=== PATIENT | female | born 1970 | race Caucasian/White ===

== ENCOUNTER 2020-09-08 12:02 | Emergency (ER) | payer SELFPAY ==
[2020-09-08] VITALS (8 sets, daily range): BP systolic 123–149; BP diastolic 77–93; PULSE 63–82; RESP 16–18; TEMP 36.4–36.8; O2SAT 95–100; BMI 34.7
--- NOTE | 2020-09-08 12:15 | XRR_ITS ---
PROCEDURE INFORMATION: Exam: XR Chest, 1 View Exam date and time: 09/08/2020 12:17 PM Age: 50 years old Clinical indication: Chest pain; Type not specified TECHNIQUE: Imaging protocol: XR of the chest Views: 1 view. COMPARISON: [place] Chest 1 [place] [id number] 08/07/2018 4:25 PM FINDINGS: Lungs: Unremarkable. No consolidation. Pleural space: Unremarkable. No pleural effusion. No pneumothorax. Heart/Mediastinum: Unremarkable. No cardiomegaly. Bones/joints: Unremarkable. XR/XR chest 1V portable [id number] IMPRESSION: No acute findings.
--- NOTE | 2020-09-08 12:15 | ECG_ITS ---
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 Measurements Intervals [place] Rate: 60 P: 55 NV: 141 QRS: 30 QRSD: 94 T: 43 QT: 430 QTc: 431 Interpretive Statements SINUS RHYTHM WITH SINUS ARRHYTHMIA LOW QRS VOLTAGE IN PRECORDIAL LEADS [QRS DEFLECTION < 1.0 mV IN CHEST LEADS] Compared to ECG 08/07/2018 16:17:38 Low QRS voltage now present Electronically Signed On 09-08-2020 13:17:56 CDT by Anthony Concepcion M.D. [email or web address] [email or web address] Vision Systemsmount [email or web address].[email or web address]/NU/[id number] f
[2020-09-08 12:45] LABS: Basophils # 0.1 10^3/uL (0.0-0.1); Basophils % 0.6 %; Eosinophils # 0.1 10^3/uL (0.0-0.8); Eosinophils % 1.1 %; Hematocrit 47.6 % (37.0-47.0); Hemoglobin 15.6 g/dL (11.5-15.3); Lymphocytes # 2.4 10^3/uL (0.8-4.8); Lymphocytes % 27.3 %; Mean Corpuscular HGB Conc 32.8 g/dL (30.0-36.0); Mean Corpuscular Volume 91.5 fL (81-99); Mean Platelet Volume 11.8 fL (7.4-10.4); Monocytes # 0.4 10^3/uL (0.2-0.9); Monocytes % 4.7 %; Neutrophils # 5.81 10^3/uL (1.8-7.7); Neutrophils % 66.1 %; Nucleated Red Blood Cells % 0 %; Platelet Count 301 10^3/cmm (130-400); Red Cell Distribution Width 12.4 % (12.1-15.1); White Blood Count 8.8 10^3/uL (4.0-10.0)
--- NOTE | 2020-09-08 12:48 | ED_ITS ---
HPI - Chest Pain General: Chief Complaint: Chest Pain Stated Complaint: CHEST PAIN Time Seen by Provider: 09/08/20 12:10 History of Present Illness: HPI narrative: This patient is a 50-year-old female who comes in today with chest pain. She said about 2 weeks of just unusual fatigue and shortness of breath with exertion. In the last week she started having episodes of sharp chest pain that are associated with lightheadedness and radiation of pain to her right arm. She had one prior episode of chest pain that ended up being her stomach. She said it got better with a GI cocktail which came to the ER at that time. She is never had a cardiac work-up. She does have a history of thyroid problems. She notes that about 6 weeks ago she started a low-carb diet and has lost about 18 pounds. She said she has done that before and does not think it is related to the symptoms. She has a family history of heart disease in her father. No family history of blood clots and no personal history of blood clots. No personal history of diabetes. She does have high blood pressure. MD complaint: chest pain Onset (ago): week(s) (2) Timing of current episode: episodic Prior episodes: Yes Onset: during rest Pain location: substernal Pain radiation: right arm Severity: severe Quality: sharp Relieving factors: nothing Exacerbating factors: nothing Associated symptoms: Reports dyspnea and other (Lightheaded); Deny abdominal pain, fever(s), nausea or vomiting Treatment prior to arrival: none Review of Systems General: Reports: 10 or more systems reviewed and unremarkable except in HPI and below Const: Denies: fever(s), chills, fatigue or malaise Eyes: Denies: change in vision ENMT: Denies: odynophagia Card: Reports: dyspnea on exertion; Denies: chest pain or swelling of feet/ankles Resp: Reports: dyspnea; Denies: productive cough or non-productive cough GI: Denies: abdominal pain, nausea or vomiting : Denies: flank pain or difficulty voiding Musc: Denies: neck pain or back pain Skin/Breast: Denies: rash Neuro: Reports: dizziness; Denies: headache(s), numbness in extremities or weakness in extremities Isidro/Lymph: Denies: easy bruising or easy bleeding PFS ED PFSH: Social History Smoking and tobacco status: current every day smoker cigarettes Physical Exam Const: COMMON NORMALS: no acute distress, patient oriented x3, no limitations and alert GENERAL APPEARANCE: cooperative and comfortable HENMT: HEAD & SCALP: normal to inspection FACE & SINUS: normal facial exam Eye: GENERAL EYE: appearance normal, both eyes and all related structures Neck/C-Spine: COMMON NORMALS: supple, no meningeal signs and no JVD Chest: COMMONS NORMALS: normal inspection of the chest Resp: COMMON NORMALS: normal respiratory effort, No use of accessory muscles and clear to auscultation bilaterally AUSCULTATION: clear to auscultation bilaterally Cardio: COMMON NORMALS: no JVD, regular rate, regular rhythm and No murmurs present (Cardio) RATE: regular rate RHYTHM: regular rhythm GI: COMMON NORMALS: Normal to inspection, nondistended, normoactive bowel sounds present, Soft to palpation and non-tender INSPECTION: Yes normal to inspection AUSCULTATION: Yes normoactive bowel sounds PALPATION: Yes Soft to palpation Back/Pelvis: COMMON NORMALS: thoracic and lumbar spine normal to inspection Extremity: COMMON NORMALS: normal to inspection Neuro: COMMON NORMALS: patient oriented x3, moves all extremities, no focal motor deficits and no sensory deficits noted SENSORIUM/ORIENTATION: Yes alert MENINGEAL SIGNS: Yes no meningeal signs Psych: COMMON NORMALS: mental status grossly normal, cooperative and normal affect Skin: COMMON NORMALS: no rashes or lesions noted and turgor normal GENERAL SKIN EXAM: no rashes or lesions noted and turgor normal Course ED course: Patient with atypical chest pain. She does have some risk factors. Work-up in the ED was negative. She has a primary care doctor but lost her insurance when she moved to [place] and is trying to establish with [facility] Vital Signs: Vital signs: Vital Signs Temperature 97.6 F 09/08/20 14:30 Pulse Rate 65 09/08/20 16:15 Respiratory Rate 18 09/08/20 16:15 Blood Pressure 123/77 09/08/20 16:15 Pulse Oximetry 95 09/08/20 16:15 MDM - Chest Pain Lab Data: Labs: Lab Results 09/08/20 09/08/20 09/08/20 Range/Units 12:33 12:33 12:33 WBC 8.8 (4.0-10.0) 10^3/ uL RBC 5.20 (4.1-5.3) 10^6/u L Hgb 15.6 H (11.5-15.3) g/dL Hct 47.6 H (37.0-47.0) % MCV 91.5 (81-99) fL MCH 30.0 (28.0-34.0) pg MCHC 32.8 (30.0-36.0) g/dL RDW 12.4 (12.1-15.1) % Plt Count 301 (130-400) 10^3/c mm MPV 11.8 H (7.4-10.4) fL Neut % (Auto) 66.1 % Lymph % (Auto) 27.3 % [place] % (Auto) 4.7 % Eos % (Auto) 1.1 % Baso % (Auto) 0.6 % Neut # (Auto) 5.81 (1.8-7.7) 10^3/u L Lymph # (Auto) 2.4 (0.8-4.8) 10^3/u L [place] # (Auto) 0.4 (0.2-0.9) 10^3/u L Eos # (Auto) 0.1 (0.0-0.8) 10^3/u L Baso # (Auto) 0.1 (0.0-0.1) 10^3/u L Nucleated RBC % (a uto) 0 % Nucleated RBCs # 0.0 /100WBC Sodium 141 (136-145) mmol/L Potassium 3.8 (3.5-5.1) mmol/L Chloride 102 (98-107) mmol/L Carbon Dioxide 27 (22-29) mmol/L Anion Gap 15.8 (5-19) BUN 8 (6-20) mg/dL Creatinine 0.9 (0.5-0.9) mg/dL GFR Calculation 66.5 L (90-130) mL/min Glucose 94 (65-115) mg/dL Calculated Osmolal ity 290 (285-295) mOsm/k g Calcium 9.5 (8.5-10.5) mg/dL Total Bilirubin 0.3 (0.15-1.2) mg/dL AST 18 (0-32) U/L ALT 19 (0-33) U/L Alkaline Phosphata se 66 (35-105) IU/L Troponin T Baselin e 6 (0-10) ng/L Troponin T 120 Min [place] (0-10) ng/L Delta Troponin T (0-10) ABS# Total Protein 7.4 (6.6-8.7) g/dL Albumin 4.3 (3.5-5.2) g/dL Globulin 3.1 (1.3-4.6) g/dL Lipase 27 (13-60) U/L HCG, Qual (Negative) Urine Color (Yellow) Urine Appearance (CLEAR) Urine pH (5-7) Ur Specific Gravit y (1.005-1.030) Urine Protein (Negative) Urine Glucose (UA) (Normal) Urine Ketones (Negative) Urine Blood (Negative) Urine Nitrate (Negative) Urine Bilirubin (Negative) Urine Urobilinogen (Negative) mg/dL Ur Leukocyte [place] ase (Negative) 09/08/20 09/08/20 09/08/20 Range/Units 13:41 13:41 14:28 WBC (4.0-10.0) 10^3/ uL RBC (4.1-5.3) 10^6/u L Hgb (11.5-15.3) g/dL Hct (37.0-47.0) % MCV (81-99) fL MCH (28.0-34.0) pg MCHC (30.0-36.0) g/dL RDW (12.1-15.1) % Plt Count (130-400) 10^3/c mm MPV (7.4-10.4) fL Neut % (Auto) % Lymph % (Auto) % [place] % (Auto) % Eos % (Auto) % Baso % (Auto) % Neut # (Auto) (1.8-7.7) 10^3/u L Lymph # (Auto) (0.8-4.8) 10^3/u L [place] # (Auto) (0.2-0.9) 10^3/u L Eos # (Auto) (0.0-0.8) 10^3/u L Baso # (Auto) (0.0-0.1) 10^3/u L Nucleated RBC % (a uto) % Nucleated RBCs # /100WBC Sodium (136-145) mmol/L Potassium (3.5-5.1) mmol/L Chloride (98-107) mmol/L Carbon Dioxide (22-29) mmol/L Anion Gap (5-19) BUN (6-20) mg/dL Creatinine (0.5-0.9) mg/dL GFR Calculation (90-130) mL/min Glucose (65-115) mg/dL Calculated Osmolal ity (285-295) mOsm/k g Calcium (8.5-10.5) mg/dL Total Bilirubin (0.15-1.2) mg/dL AST (0-32) U/L ALT (0-33) U/L Alkaline Phosphata se (35-105) IU/L Troponin T Baselin e (0-10) ng/L Troponin T 120 Min [place] 6.00 (0-10) ng/L Delta Troponin T 0 (0-10) ABS# Total Protein (6.6-8.7) g/dL Albumin (3.5-5.2) g/dL Globulin (1.3-4.6) g/dL Lipase (13-60) U/L HCG, Qual Negative (Negative) Urine Color Yellow (Yellow) Urine Appearance Clear (CLEAR) Urine pH 7.0 (5-7) Ur Specific Gravit y 1.005 (1.005-1.030) Urine Protein Neg (Negative) Urine Glucose (UA) Norm (Normal) Urine Ketones Negative (Negative) Urine Blood Neg (Negative) Urine Nitrate Negative (Negative) Urine Bilirubin Neg (Negative) Urine Urobilinogen Norm (Negative) mg/dL Ur Leukocyte [place] ase Negative (Negative) Discharge Plan Discharge Patient Disposition: Home Clinical Impression: Chest pain Qualifiers: Chest pain type: unspecified Qualified Code(s): R07.9 - Chest pain, unspecified Condition: Stable Discharge Orders: Discharge Order (Routine); Ordered 09/08/20 Ordered By: Diana Garcia Referrals: Anthony Concepcion M.D [Physician] - 2 weeks Shayan Hennessy MD [Primary Care Provider] - Discharge Diet: Advance as tolerated Discharge Activity: Resume usual activity Patient Instructions: Chest Pain (ED) Activity Restrictions/Additional Instructions: Continue to establish primary care at [facility]. Return to the ER if new or worse symptoms occur. We have also given a referral to cardiology for further evaluation of your chest pain. 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
[2020-09-08] MEDS: sodium chloride 0.9% 1,000 ML 999 ML IV (13:00)
[2020-09-08 13:24] LABS: Alanine Aminotransferase 19 U/L (0-33); Albumin Level 4.3 g/dL (3.5-5.2); Alkaline Phosphatase 66 IU/L (35-105); Anion Gap 15.8 (5-19); Aspartate Amino Transferase 18 U/L (0-32); Blood Urea Nitrogen 8 mg/dL (6-20); Calcium 9.5 mg/dL (8.5-10.5); Carbon Dioxide 27 mmol/L (22-29); Chloride 102 mmol/L (98-107); Globulin 3.1 g/dL (1.3-4.6); Glomerular Filtration Rate 66.5 mL/min (90-130); Glucose 94 mg/dL (65-115); Lipase 27 U/L (13-60); Osmolality Calculated 290 mOsm/kg (285-295); Potassium 3.8 mmol/L (3.5-5.1); Sodium 141 mmol/L (136-145); Total Bilirubin 0.3 mg/dL (0.15-1.2); Total Protein 7.4 g/dL (6.6-8.7); Troponin(5th) Baseline 6 ng/L (0-10)
--- NOTE | 2020-09-08 14:15 | ECG_ITS ---
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 Measurements Intervals [place] Rate: 65 P: 52 AL: 137 QRS: 42 QRSD: 89 T: 43 QT: 427 QTc: 447 Interpretive Statements SINUS RHYTHM Compared to ECG 09/08/2020 12:27:17 Sinus arrhythmia no longer present Electronically Signed On 09-10-2020 20:58:35 CDT by Anthony Concepcion M.D. [email or web address] county medical [email or web address], [email or web address]/[id number] f
[2020-09-08 14:18] LABS: Add Urine Microscopic? NO
[2020-09-08 14:24] LABS: Bilirubin Urine Neg (Negative); Blood Urine Neg (Negative); Glucose Urine UA Norm (Normal); Ketones Urine Negative (Negative); Nitrate Urine Negative (Negative); Protein Urine Neg (Negative); Specific Gravity, Urine 1.005 (1.005-1.030); Urine Appearance Clear (CLEAR); Urine Color Yellow (Yellow)
[2020-09-08 14:25] LABS: Leukocyte Esterase Urine Negative (Negative); Urobilinogen Urine Norm (Negative)
[2020-09-08 14:32] LABS: HCG Qualitative Urine. Negative (Negative)
[2020-09-08 15:35] LABS: Troponin 5 2HR Delta 0 ABS# (0-10)
== END 2020-09-08 16:19 | disposition home or self-care (01) ==
PROVIDERS: Emergency Provider Emergency Medicine; Family Provider Family Medicine; PCP Family Medicine
DX: R07.9 Chest pain, unspecified (principal); F17.210 Nicotine dependence, cigarettes, uncomplicated
CPT/HCPCS: 12345; 36415; 71045; 80053; 81003; 81025; 83690; 84484; 85025; 93005; 96360; 99284; J7030

== ENCOUNTER → 2020-09-25 09:30 | Outpatient (BNVA) | payer SELFPAY | PROVIDERS: Family Provider Family Medicine; PCP Family Medicine; Visit Provider Obstetrics & Gynecology | DX: Z12.4 Encounter for screening for malignant neoplasm of cervix (principal) | CPT/HCPCS: 88175 ==

== ENCOUNTER → 2020-10-06 14:43 | Outpatient (BNVA) | payer OTHER, SELFPAY | PROVIDERS: Family Provider Family Medicine; PCP Family Medicine; Visit Provider Nurse Practitioner Family | DX: Z20.828 Contact with and (suspected) exposure to other viral communicable diseases (principal) | CPT/HCPCS: 87635 ==

== ENCOUNTER → 2020-11-05 14:55 | Outpatient (BNVA) | payer SELFPAY | PROVIDERS: Family Provider Family Medicine; PCP Family Medicine; Visit Provider Obstetrics & Gynecology | DX: R87.610 Atypical squamous cells of undetermined significance on cytologic smear of cervix (ASC-US) (principal); R87.810 Cervical high risk human papillomavirus (HPV) DNA test positive | CPT/HCPCS: 88305 ==

== ENCOUNTER → 2020-11-29 14:01 | Outpatient (BNVA) | payer OTHER, SELFPAY | PROVIDERS: Family Provider Family Medicine; PCP Family Medicine; Visit Provider Nurse Practitioner | DX: Z20.828 Contact with and (suspected) exposure to other viral communicable diseases (principal); U07.1 COVID-19 | CPT/HCPCS: 87635 ==

== ENCOUNTER → 2021-01-21 11:09 | Outpatient (BNVA) | payer SELFPAY | PROVIDERS: Family Provider Family Medicine; PCP Family Medicine; Visit Provider Family Medicine | DX: E03.9 Hypothyroidism, unspecified (principal); Z68.34 Body mass index [BMI] 34.0-34.9, adult; F17.210 Nicotine dependence, cigarettes, uncomplicated | CPT/HCPCS: 80053; 84443; 85025 ==

== ENCOUNTER → 2021-12-03 12:02 | Outpatient (BNVA) | payer OTHER, SELFPAY | PROVIDERS: Family Provider Family Medicine; PCP Family Medicine; Visit Provider Nurse Practitioner Family | DX: Z20.822 Contact with and (suspected) exposure to COVID-19 (principal) | CPT/HCPCS: 87635 ==

== ENCOUNTER → 2022-03-24 11:48 | Outpatient (BNVA) | payer SELFPAY | PROVIDERS: Family Provider Family Medicine; PCP Family Medicine; Visit Provider Family Medicine | DX: E03.9 Hypothyroidism, unspecified (principal); F41.1 Generalized anxiety disorder; Z76.89 Persons encountering health services in other specified circumstances; M54.16 Radiculopathy, lumbar region | CPT/HCPCS: 80053; 80061; 84439; 84443; 85025 ==

== ENCOUNTER 2022-03-29 11:31 | Outpatient (CLI) | payer MEDICAID, SELFPAY ==
--- NOTE | 2022-03-29 11:58 | XRR_ITS ---
PROCEDURE INFORMATION: Exam: XR Lumbosacral Spine Exam date and time: 03/29/2022 12:04 PM Age: 51 years old Clinical indication: Low back pain; Additional info: Low back pain with radiculopathy TECHNIQUE: Imaging protocol: XR of the lumbosacral spine. Views: 2 or 3 views. COMPARISON: CT abdomen pelvis w con* [id number] 08/07/2018 6:29 PM FINDINGS: Bones/joints: Mild multilevel productive endplate changes throughout the spine. Soft tissues: Unremarkable. XR/XR lumbar spine 2-3V* [id number] IMPRESSION: Mild multilevel productive endplate changes throughout the spine.
== END 2022-03-29 11:32 | disposition home or self-care (01) ==
PROVIDERS: PCP Family Medicine; Visit Provider Family Medicine
DX: M54.16 Radiculopathy, lumbar region (principal); M54.50 Low back pain, unspecified
CPT/HCPCS: 72100

== ENCOUNTER → 2022-04-05 15:30 | Outpatient (BNVA) | payer MEDICAID, SELFPAY | PROVIDERS: PCP Family Medicine; Visit Provider Obstetrics & Gynecology | DX: Z12.4 Encounter for screening for malignant neoplasm of cervix (principal) | CPT/HCPCS: 87624 ==

== ENCOUNTER 2022-08-10 10:45 | Outpatient (CLI) | payer MEDICAID, SELFPAY ==
--- NOTE | 2022-08-10 10:54 | MM_ITS ---
WS: [id number] BILATERAL SCREENING DIGITAL TOMOSYNTHESIS MAMMOGRAM WITH CAD HISTORY: Screening exam. COMPARISON: 01/05/2006 Bilateral CC and MLO views with tomosynthesis and synthetic mammography submitted. Computer aided det ection analyzed. Breast composition: The breasts are almost entirely fatty. No suspicious masses, microcalcifications or architectural distortion. Benign scattered calcifications within each breast. MM/[place] [id number] IMPRESSION: BI-RADS: 2-Benign FOLLOW UP: 1 Year Follow-up
== END 2022-08-10 10:46 | disposition home or self-care (01) ==
LOC: RAD 10:51
PROVIDERS: PCP Family Medicine; Visit Provider Obstetrics & Gynecology
DX: Z12.31 Encounter for screening mammogram for malignant neoplasm of breast (principal)
CPT/HCPCS: 77063; 77067

== ENCOUNTER 2022-09-27 06:00 | Outpatient (CLI) | payer MEDICAID, SELFPAY | END 2022-09-27 06:01 | LOC: SPT 10-25 07:21 | PROVIDERS: PCP Family Medicine; Visit Provider Specialist | DX: Z46.89 Encounter for fitting and adjustment of other specified devices (principal); M25.562 Pain in left knee | CPT/HCPCS: L1812 ==

== ENCOUNTER 2022-10-07 18:36 | Emergency (ER) | payer MEDICAID, SELFPAY ==
[2022-10-07 18:58] VITALS: BP 126/91; PULSE 110; RESP 22; TEMP 36.9; O2SAT 96; BMI 33.6
--- NOTE | 2022-10-07 21:23 | XRR_ITS ---
PROCEDURE INFORMATION: Exam: XR Right Knee Exam date and time: 10/07/2022 9:45 PM Age: 52 years old Clinical indication: Pain; Knee; Right; Additional info: Trauma TECHNIQUE: Imaging protocol: Radiologic exam of the Right knee. Views: 3 views. COMPARISON: No relevant prior studies available. FINDINGS: Bones/joints: Mild medial compartment osteoarthritis. Soft tissues: Normal. XR/XR knee RT 3V* [id number] IMPRESSION: 1. Negative fracture or dislocation. 2. Mild medial compartment osteoarthritis.
--- NOTE | 2022-10-07 21:23 | XRR_ITS ---
PROCEDURE INFORMATION: Exam: XR Left Knee Exam date and time: 10/07/2022 9:39 PM Age: 52 years old Clinical indication: Pain; Knee; Left; Additional info: Trauma TECHNIQUE: Imaging protocol: Radiologic exam of the Left knee. Views: 3 views. COMPARISON: No relevant prior studies available. FINDINGS: Bones/joints: Normal. Soft tissues: Normal. XR/XR knee LT 3V* [id number] IMPRESSION: No acute findings.
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
--- NOTE | 2022-10-07 21:24 | XRR_ITS ---
PROCEDURE INFORMATION: Exam: XR Left Tibia and Fibula Exam date and time: 10/07/2022 9:56 PM Age: 52 years old Clinical indication: Pain; Lower leg; Right; Additional info: Trauma TECHNIQUE: Imaging protocol: Radiologic exam of the Left tibia and fibula. Views: 2 views. COMPARISON: CR (LOW EXM, ) 10/07/2022 9:39 PM FINDINGS: Bones/joints: Small calcified heel spur. Negative for fracture or dislocation. Soft tissues: Normal. XR/XR tibia fibula LT 2V [id number] IMPRESSION: No acute findings.
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
[2022-10-07] MEDS: HYDROcodone-acetaminophen 7.5-325 mg Tablet 1 TAB PO (23:15)
[2022-10-07 23:40] VITALS: BP 123/78; PULSE 100; RESP 18; TEMP 36.9; O2SAT 96
--- NOTE | 2022-10-10 07:53 | PC.SOCIAL ---
Addendum entered by Rose Marie Ng 11/16/22 13:42: Patient had a follow up appointment scheduled with ortho - patient did attend appointment. Original Note: Ortho Referral Consult received for ortho referral. Referral [facility] to [facility] Orthopedics/Podiatry. Clinic will contact patient with appt. date/time.
== END 2022-10-07 23:30 | disposition home or self-care (01) ==
PROVIDERS: Emergency Provider Emergency Medicine; PCP Family Medicine
DX: S83.92XA Sprain of unspecified site of left knee, initial encounter (principal); V89.2XXA Person injured in unspecified motor-vehicle accident, traffic, initial encounter; F17.210 Nicotine dependence, cigarettes, uncomplicated
CPT/HCPCS: 73562; 73590; 99283; E0114

== ENCOUNTER 2022-10-27 16:22 | Outpatient (CLI) | payer MEDICAID, SELFPAY ==
--- NOTE | 2022-10-27 16:45 | MR_ITS ---
WS: [id number] MRI LEFT KNEE HISTORY: Recent trauma, continued LEFT knee pain COMPARISON: Radiograph 10/07/2022 Anterior cruciate ligament: Intact with a small amount of fluid within the ligament distally. Posterior cruciate ligament: Complete tear involving the PCL in the mid body. There is also discontin uity involving the ligament of Wrisberg consistent with a tear. Fluid surrounds the ligament of Humph kinsey but it does appear to be intact. Medial collateral ligament: Intact. Posterior lateral corner structures: Intact. Medial menisci: Blunting free edge posterior horn with adjacent cartilage injury. Lateral meniscus: Intact. Normal signal, size and shape. Extensor mechanism: Distal quadriceps tendon and patellar tendons are intact. Fluid and soft tissue: Moderate-sized joint effusion. Mild soft tissue edema surrounds the femoral co ndyles and extends into the intercondylar notch. No Ward's cyst. Osseous and articular structures: Patellofemoral compartment: Normal position of patella. Mild chondromalacia at the patellar eminence. Medial compartment: Mild narrowing of the medial compartment. Moderate chondromalacia involving the w eightbearing portion of the femoral condyle and tibial plateau. Cartilage injury is at the site of th e blunted posterior horn medial meniscus. Linear signal extends obliquely through the femoral cartila ge and is suspicious for an area of delamination towards the intercondylar notch. Lateral compartment: Negative. MR/MR knee LT wo con* [id number] IMPRESSION: 1. Complete acute tear posterior cruciate ligament. 2. Also suspect tear involving the ligament of Wrisberg. 3. Blunting free edge posterior horn medial meniscus with adjacent cartilage i njury. Focal area of delamination suspected involving the femoral cartilage tow ards the intercondylar notch. 4. Moderate joint effusion.
== END 2022-10-27 16:23 | disposition home or self-care (01) ==
LOC: RAD 16:23
PROVIDERS: PCP Family Medicine; Visit Provider Specialist
DX: M25.462 Effusion, left knee (principal); S83.522A Sprain of posterior cruciate ligament of left knee, initial encounter; X58.XXXA Exposure to other specified factors, initial encounter
CPT/HCPCS: 73721

== ENCOUNTER → 2022-11-29 14:28 | Outpatient (BNVA) | payer MEDICAID, SELFPAY | PROVIDERS: PCP Family Medicine; Visit Provider Family Medicine | DX: E03.9 Hypothyroidism, unspecified (principal); F41.1 Generalized anxiety disorder | CPT/HCPCS: 80053; 84439; 84443 ==

== ENCOUNTER 2023-01-06 07:26 | Day surgery (SDC) | payer OTHER, MEDICAID, SELFPAY ==
[2023-01-05 13:40] VITALS: BMI 35.2
[2023-01-06] VITALS (7 sets, daily range): BP systolic 98–124; BP diastolic 53–81; PULSE 50–76; RESP 11–18; TEMP 36.2–36.6; O2SAT 95–98
[2023-01-06] MEDS: ketorolac 30 mg/mL INJ IVP (07:57)
[2023-01-06] MEDS: acetaminophen 1,000 MG/100 ML PIGGYBACK 400 MG IV (07:57)
[2023-01-06] MEDS: sodium chloride 0.9% 1,000 ML 30 ML IV (07:57)
[2023-01-06] MEDS: scopolamine 1.5 Patch 1 PATCH TRANSDERMA (07:58)
[2023-01-06 08:05] LABS: OR HCG Qualitative Urine Negative (Negative)
--- NOTE | 2023-01-06 08:05 | W.PM.OPSFHP ---
Same Day Surgery H&P Indication for Procedure/HPI DATE OF PROCEDURE: January 06, 2023 CHIEF COMPLAINT/INDICATIONFOR SURGICAL PROCEDURE: Left knee injury, PCL tear and medial meniscus tear and medial chondromalacia PREOP DIAGNOSIS: Left knee medial meniscus tear, chondromalacia PLANNED PROCEDURE: Operation Date: 01/06/23 09:55 Proposed Procedures p left knee diagnostic and surgical arthroscopy 92698, left knee partial medial meniscectomy repair 23509 S83.242A,S83.529A(Left) - Tom Ford DO s Meniscectomy(Left) - Tom Ford DO Patient sustained an injury to her left knee. She was worked up by my partner and had an MRI performed. Was found to have an acute PCL tear as well as possible medial meniscus tear and cartilage injury at the medial compartment. We originally plan for surgery and then she did pause to see how she could heal in time. She is continue to have medial pain as well as stiffness and clicking and catching. At this point time she elected to proceed with surgical intervention of the left knee diagnostic and surgical arthroscopy with partial medial meniscectomy versus repair and possible chondroplasty. We did detail and long discussion about an isolated PCL injury and ultimately given her age and this isolated injury to this ligament would recommend nonoperative treatment and no reconstruction. At this point time through shared decision making she is agreeable with this. Patient agrees to proceed with surgery today. Medications/Allergies* Home Medications Medication Instructions Recorded Confirmed Type levothyroxine 100 mcg tablet 100 mcg PO DAILY 01/05/23 01/06/23 History Allergies/Adverse Reactions Allergy/AdvReac Type Severity Reaction Status Date / Time metronidazole [From Flagyl] Allergy ALGY-Hives Verified 01/06/23 07:52 Current Medications: Generic Name Dose Route Start Last Admin Trade Name Freq PRN Reason Stop Dose Admin Sodium Chloride 1,000 mls @ 30 mls/hr 01/06/23 07:45 01/06/23 07:57 Sodium Chloride 0.9% IV 01/07/23 07:44 30 mls/hr .Q24H LATASHA Administration Pertinent History/Comorbid Conditions* Medical History (Updated 11/10/22 @ 06:04 by Tom Ford DO) Acute medial meniscus tear of left knee History of abnormal cervical Pap smear Hypothyroid Tear of posterior cruciate ligament of knee Well woman exam with routine gynecological exam Surgical History (Updated 04/05/22 @ 16:06 by Bulmaro Rojas MD) H/O section H/O tubal ligation H/O vaginal surgery x3 vaginal wall excision CO2 laser Family History (Updated 09/25/20 @ 08:48 by Lexie Campos RN) Diabetes Brother Mother Heart disease Brother Hypertension Mother Denies family history of Colon cancer Ovarian cancer Clotting disorder Hyperlipidemia Breast cancer Anesthesia complication Bleeding disorder Uterine cancer Thyroid condition Stroke Social History Smoking and tobacco status: current every day smoker cigarettes Alcohol intake: current Alcohol intake frequency: holidays/special occasions only Alcohol type: beer Pertinent Exam Findings alert, operative site marked and procedure specific exam findings Examination patient's left knee demonstrates mild joint effusion noted.? Patient has significant tenderness to palpation over the posterior medial aspect of the knee as well as a small Ward's cyst and slight tenderness to palpation posteriorly.? On examination of varus valgus stress is negative.? She does have a mild positive posterior drawer test.? Negative anterior drawer negative Gabi's.? She has no lateral joint line tenderness.? Positive Deepa's medially.? Patient has decreased range of motion roughly 0 degree extension?115 degrees of flexion calf soft and nontender Pertinent Data Left knee MRI 10/27/2022 IMPRESSION: ? 1.? Complete acute tear posterior cruciate ligament. 2.? Also suspect tear involving the ligament of Wrisberg. 3.? Blunting free edge posterior horn medial meniscus with adjacent cartilage injury. Focal area of delamination suspected involving the femoral cartilage towards the intercondylar notch. 4.? Moderate joint effusion. ? Recommendations Surgery/Procedure today Other Plans: Plan for OR today for left knee diagnostic and surgical arthroscopy with partial medial meniscectomy versus repair, possible chondroplasty. She understands risk benefits complication alternatives surgical and nonsurgical treatment options. Understanding risk of surgery she elects to proceed with surgical intervention. All questions answered. We will proceed with surgery today. Coding Level of Care Code Acute Code for Chg Fwd Time Spent (min) 20
--- NOTE | 2023-01-06 08:15 | ANES.PREANE2 ---
Pre-Anesthetic Assessment Height/Weight: Height 1.7 m Weight 102.058 kg Temp Pulse Resp BP Pulse Ox O2 Del Method 97.9 F 76 18 124/81 97 01/06/23 07:31 01/06/23 07:31 01/06/23 07:31 01/06/23 07:31 01/06/23 07:31 01/06/23 07:40 Preop Diagnosis: Left knee medial meniscus tear, chondromalacia Operation Date: 01/06/23 09:55 Proposed Procedures p left knee diagnostic and surgical arthroscopy 14744, left knee partial medial meniscectomy repair 17748 S83.242A,S83.529A(Left) - Tom Ford DO s Meniscectomy(Left) - Tom Ford DO Familial anesthetic complications: Slow to wake up Was Beta Kristen taken within 24 hours: Yes Was Clonidine taken within 24 hours: N/A Last intake: Intake Last Liquid Date 01/05/23 Last Liquid Time 18:30 Last Solid Date 01/05/23 Last Solid Time 18:30 Social Tobacco and No alcohol Exam alert, oriented x 3, clear to auscultation bilaterally and regular rate & rhythm Airway Mallampati: Class III Dentition: full CV/HEM Hypertension Metabolic Thyroid Disease Anesthetic Plan ASA status: 2 Anesthesia: General Risk of > 500 ml blood loss (7ml/kg in children): No Medications/Allergies Home Medications Medication Instructions Recorded Confirmed Last Taken Type Hinged knee brace #1 ea 10/12/22 11/25/22 Unknown Rx atenolol 25 mg tablet 25 mg PO DAILY #30 tabs 10/25/22 01/06/23 01/05/23 Rx tramadol 50 mg tablet 50 mg PO BID PRN pain 30 days #60 12/26/22 01/06/23 01/05/23 Rx tabs levothyroxine 100 mcg tablet 100 mcg PO DAILY 01/05/23 01/06/23 01/06/23 History Allergies Allergy/AdvReac Type Severity Reaction Status Date / Time metronidazole [From Flagyl] Allergy ALGY-Hives Verified 01/06/23 07:52 Current Medications Generic Name Dose Route Start Last Admin Trade Name Freq PRN Reason Stop Dose Admin Sodium Chloride 1,000 mls @ 30 mls/hr 01/06/23 07:45 02/10/23 07:57 Sodium Chloride 0.9% IV 01/07/23 07:44 30 mls/hr .Q24H LATASHA Administration PFSH Anesthesia Medical History (Updated 11/10/22 @ 06:04 by Tom Ford DO) Acute medial meniscus tear of left knee History of abnormal cervical Pap smear Hypothyroid Tear of posterior cruciate ligament of knee Well woman exam with routine gynecological exam Surgical History H/O section H/O tubal ligation H/O vaginal surgery x3 vaginal wall excision CO2 laser Family History Brother Diabetes Heart disease Mother Diabetes Hypertension Denies family history of Colon cancer Ovarian cancer Clotting disorder Hyperlipidemia Breast cancer Anesthesia complication Bleeding disorder Uterine cancer Thyroid condition Stroke Social History Smoking and tobacco status: current every day smoker cigarettes Alcohol intake: current Alcohol intake frequency: holidays/special occasions only Alcohol type: beer Female Reproductive History Date of last menstrual period: 12/23/22 Data Anesthesia Cardiac Studies: No Data to Display
[2023-01-06] MEDS: ceFAZolin 2,000 MG in sodium chloride 0.9% (plus) 50 ML 100 MG IV (08:51)
[2023-01-06] MEDS: lidocaine-epi 2% 20 mL INJ 40 ML INJECTION (09:25)
[2023-01-06] MEDS: HYDROcodone-acetaminophen 5-325 mg Tablet 1 TAB PO (10:28)
--- NOTE | 2023-01-06 10:45 | PM.OP2 ---
Brief Operative Note Date of procedure: 01/06/23 Pre-op diagnosis: Left knee PCL tear, medial meniscus tear, chondromalacia Post-op diagnosis: same Procedure Done: Left knee diagnostic and surgical arthroscopy with medial and patellofemoral compartment chondroplasty Left knee diagnostic and surgical arthroscopy with PCL debridement Left knee diagnostic and surgical arthroscopy with extensive synovectomy medial, lateral, patellofemoral compartments. Surgeon: Tom Ford Estimated blood loss (mL): 1 Complications: None Post-op Plan: Patient taken to PACU in stable condition recovering well. Will be given appropriate discharge instructions as well as pain medication postoperatively. Will be allowed to weight-bear as tolerated to the left lower extremity. We will follow-up with me in the office in 2 weeks. Patient understands and agrees with current plan. All questions answered. Condition: stable Disposition: same day Coding Level of Care Code Acute Code for Ahmet Rowe
--- NOTE | 2023-01-06 10:46 | PM.PACU ---
PACU note Narrative: Patient taken to PACU in stable condition. Pain controlled. Dressings clean dry and intact. Able to wiggle toes, plantarflex and dorsiflex ankle. Sensation intact to light touch distally. Distal pulses palpable. Exam: awake Disposition: discharged
--- NOTE | 2023-01-06 10:47 | PM.OP ---
Operative Report Date of procedure: January 06, 2023 Pre-op diagnosis: Preop Diagnosis Left knee medial meniscus tear, chondromalacia, PCL tear Post-op diagnosis: Left knee PCL tear, medial and patellofemoral chondromalacia, extensive synovitis Procedure done: Left knee diagnostic and surgical arthroscopy with medial and patellofemoral compartment chondroplasty Left knee diagnostic and surgical arthroscopy with PCL debridement Left knee diagnostic and surgical arthroscopy with extensive synovectomy medial, lateral, patellofemoral compartments. Surgeon: Tom Ford DO Estimated blood loss: 1mL 17min IV fluids: 600mL Complications: none Condition: stable Disposition: same day Brief History: Patient's been seen and worked up in the outpatient setting for left knee pain after an injury. She subsequently was seen and evaluated by my partner and was referred to my office for potential evaluation given MRI findings. She does have an isolated PCL injury which given her age and an isolated injury this can be treated nonoperatively which we had detailed discussion about this and reconstruction ultimately would recommend no surgery in the way of a PCL reconstruction. However there is findings concerning for possible meniscal injury and overall through shared decision making she like to proceed with surgical intervention addressing this. We initially had booked her and she could subsequently pause and try to see how far she could progress nonoperatively with therapy however at this point time she has had persistent pain and issues particular in the posterior medial aspect of the knee. Given her failure of conservative treatment recommend a left knee diagnostic and surgical arthroscopy with partial medial meniscectomy versus repair and possible chondroplasty. Understanding risk benefits complication alternatives surgical nonsurgical treatment options. She understands the risk of surgery and elects to proceed with surgical intervention. All questions answered. She was seen evaluated this morning with an updated H&P prior to surgery. Procedure: Patient seen and evaluated in the preoperative holding area. Consent was reviewed and signed with patient. Correct extremity was then marked. Patient seen evaluated Anesthesia Department once cleared for surgery she was taken back to the operative suite. She was transported onto the OR table in supine position. All bony prominences well-padded patient was appropriate secured to the bed. Once appropriately anesthetized a nonsterile tourniquet was applied to the left thigh. The left lower extremity was then prepped and draped in standard orthopedic fashion. Final timeout performed. Patient received appropriate preoperative antibiotics. Esmarch was used to exsanguinate the left lower extremity and tourniquet was insufflated 250 mmHg. A standard 2 portal vertical incision diagnostic and surgical arthroscopy of the left knee was performed in standard fashion. Small stab incision made in the inferolateral portal introduced trocar and arthroscope into the suprapatellar pouch. Suprapatellar pouch was subsequently visualized and found to have significant synovitis but no loose bodies. The medial gutter was free of loose bodies I then introduced the arthroscope into the medial compartment. Within the medial compartment I then established my inferior medial working portal utilizing spinal needle outside in technique. Once established I then visualized our articular cartilage of the medial compartment with a valgus stress. Patient was found to have grade 2?3 chondromalacia throughout the medial compartment most pronounced on the femoral condyle. Next I inspected the meniscus. With an arthroscopic probe arthroscopic probe was utilized to visual lyse all aspects of the meniscus there is no evidence of a meniscal tear. In the posterior medial aspect of the knee patient has significant scar tissue in the area of the healing PCL tear. At this point time introduced my arthroscopic shaver as this was a was a loose flap and subsequently performed a PCL debridement with arthroscopic shaver with care to leave the intact healing PCL. A prior tear was noted with interval healing appreciated. I then inspected the meniscal root which was intact. The rest of the meniscus was found to have no root tear or posterior horn tear. As result I completed a medial compartment chondroplasty with arthroscopic shaver and thermal wand to stable articular tissue. I then introduced the arthroscope to the intercondylar notch and the ACL was intact and PCL fibers were visualized. Next I then introduced the arthroscope the lateral compartment this was found to be pristine with grade I chondromalacia and no meniscal tear was found. I then visualized the lateral recess and again noted no loose bodies. Then returning to the patellofemoral joint patient was found to have grade 2?3 chondromalacia in this area. Patient had extensive synovitis in all aspects and compartments of the knee I then introduced arthroscopic shaver and performed extensive synovectomy of all 3 compartments as well as a patellofemoral chondroplasty with a shaver and thermal wand to stable articular tissue. I then switched the portal sites and inspected the patellofemoral joint which was located and within the trochlear groove. I completed my synovectomy and then visualized all 3 compartments once again. This point I did visualize a noticeable osteophyte and findings consistent with chondromalacia and degenerative changes of the medial compartment this osteophyte was noted on the medial femoral condyle. This completed patient's knee diagnostic and surgical arthroscopy. All fluid was suctioned from the joint. Tourniquet deflated hemostasis satisfactory. All instruments were withdrawn. Portal sites were closed with interrupted nylon suture. Dressed with Xeroform 4 x 4's ABD Curlex and Miguel A wrap. Patient was then subsequently awakened from anesthesia and taken to PACU in stable condition. Disposition: Patient taken to PACU in stable condition recovering well. Will receive appropriate discharge structure as well as pain medication postoperatively as well as daily aspirin for DVT prophylaxis. We will have patient follow-up with us in the office in 2 weeks. Patient understands and agrees with current plan. All questions answered.
--- NOTE | 2023-01-06 14:05 | ANE.PACU2 ---
Inpatient post-anesthesia follow up: Airway intact: Yes Vital signs: Temperature 97.2 F Pulse Rate 50 Respiratory Rate 18 Blood Pressure 112/68 Pulse Oximetry 95 Oxygen Delivery Me thod Room Air Oxygen Flow Rate 6 Fraction of Inspir ed Oxygen Hydration adequate: Yes Nausea and vomiting: No Pain level: 1 Mental status: Baseline
== END 2023-01-06 10:52 | disposition home or self-care (01) ==
PROVIDERS: PCP Family Medicine; Visit Provider Student in an Organized Health Care Education/Training Program
PROC: (CPT 29870; principal; 2023-01-06 09:55)
PROC: (CPT 29876; 2023-01-06 09:55)
PROC: (CPT 29876; 2023-01-06 09:55)
PROC: (CPT 27310; 2023-01-06 09:55)
DX: M22.42 Chondromalacia patellae, left knee (principal); S83.242A Other tear of medial meniscus, current injury, left knee, initial encounter; X58.XXXA Exposure to other specified factors, initial encounter; I10 Essential (primary) hypertension; F17.210 Nicotine dependence, cigarettes, uncomplicated; E03.9 Hypothyroidism, unspecified
CPT/HCPCS: 29876; 81025; 84703; J0131; J0690; J1100; J1885; J2405; J2704; J3010; J7030

== ENCOUNTER 2023-01-30 06:00 | Outpatient (RCR) | payer OTHER, SELFPAY | END 2023-02-24 23:59 | disposition home or self-care (01) | LOC: APT 06:00 | PROVIDERS: PCP Family Medicine; Visit Provider Student in an Organized Health Care Education/Training Program | DX: Z47.89 Encounter for other orthopedic aftercare (principal) | CPT/HCPCS: 97110; 97161 ==

== ENCOUNTER → 2023-04-20 14:30 | Outpatient (BNVA) | payer MEDICAID, SELFPAY | PROVIDERS: PCP Family Medicine; Visit Provider Obstetrics & Gynecology | DX: R87.810 Cervical high risk human papillomavirus (HPV) DNA test positive (principal) | CPT/HCPCS: 87624 ==

== ENCOUNTER 2023-06-05 14:10 | Outpatient (CLI) | payer MEDICAID, SELFPAY ==
--- NOTE | 2023-06-05 14:45 | MR_ITS ---
WS: [id number] MRI HEAD WITHOUT CONTRAST TECHNIQUE: Sagittal T1, T2 axial, T2 axial FLAIR, axial and coronal T1 images, axial susceptibility w eighted imaging, axial diffusion weighted images, and coronal T2 images were obtained. CLINICAL INFORMATION: Chronic vertigo COMPARISON: None. FINDINGS: No evidence of restricted diffusion to suggest acute ischemia. Ventricular system and basal cisterns are patent. A few small foci of T2 hyperintensity in the supratentorial white matter can be seen with hypertension, diabetes, and small vessel disease. No significant parenchymal volume loss. Normal pos terior fossa. Normal vascular flow voids at the skull base. No extra-axial fluid collections. No evidence of mass o r mass effect. Mild mucosal thickening in the paranasal sinuses. Mastoid air cells well aerated. Norm al posterior nasopharynx. Normal parapharyngeal fat. No hemosiderin on the susceptibly weighted images. Normal optic chiasm and pituitary infundibulum. Te mporal lobes and hippocampal formations are normal in appearance. MR/MR head wo con* [id number] IMPRESSION: 1. No evidence of restricted diffusion to suggest acute ischemia. 2. Minimal supratentorial white matter changes nonspecific in a patient this a ge but can be seen with hypertension, diabetes, small vessel disease. 3. No significant parenchymal volume loss. 4. Hypoplastic RIGHT maxillary sinus with a small amount of fluid and mucosal thickening. 5. Mastoid air cells are well aerated. 6. No hemosiderin on susceptibly weighted images. 7. No other suspicious findings.
== END 2023-06-05 14:11 | disposition home or self-care (01) ==
PROVIDERS: PCP Family Medicine; Visit Provider Family Medicine
DX: R42 Dizziness and giddiness (principal)
CPT/HCPCS: 70551

== ENCOUNTER → 2024-02-27 10:27 | Outpatient (BNVA) | payer MEDICAID, SELFPAY | PROVIDERS: PCP Family Medicine; Visit Provider Physician Assistant | DX: M25.562 Pain in left knee (principal); M94.262 Chondromalacia, left knee | CPT/HCPCS: 73560; 73565 ==

== ENCOUNTER → 2024-05-22 11:19 | Outpatient (BNVA) | payer MEDICAID, SELFPAY | PROVIDERS: PCP Family Medicine; Visit Provider Family Medicine | DX: E55.9 Vitamin D deficiency, unspecified (principal); E03.9 Hypothyroidism, unspecified; M54.16 Radiculopathy, lumbar region; M25.511 Pain in right shoulder; M25.512 Pain in left shoulder; E83.42 Hypomagnesemia; R79.89 Other specified abnormal findings of blood chemistry | CPT/HCPCS: 80053; 80061; 82306; 82607; 82746; 83735; 84439; 85025; 85651; 86140; 86160; 86162; 86235; 86255; 86376; 86431 ==

== ENCOUNTER → 2024-10-07 14:17 | Outpatient (BNVA) | payer MEDICAID, SELFPAY | PROVIDERS: PCP Family Medicine; Visit Provider Obstetrics & Gynecology | DX: E06.3 Autoimmune thyroiditis (principal) | CPT/HCPCS: 83001 ==

== ENCOUNTER 2024-10-23 14:47 | Outpatient (CLI) | payer MEDICAID, SELFPAY ==
--- NOTE | 2024-10-23 15:00 | MM_ITS ---
WS: [email or web address] BILATERAL 3D TOMOSYNTHESIS DIGITAL SCREENING MAMMOGRAPHY WITH CAD CLINICAL INFORMATION: Z12.39 - Encounter for other screening for malignant neop... HISTORY: Screening mammogram. No current complaints. COMPARISON: 2021 TECHNIQUE: Bilateral CC and MLO views. FINDINGS: Scattered fibroglandular densities bilaterally. No suspicious focal mass, asymmetry, calcifications, or architectural distortion. No evidence of malignancy. A few benign calcifications. MM/MM [facility] tomosynthesis [id number] IMPRESSION: DENSITY: There are scattered areas of fibroglandular density. BI-RADS: 2 - Benign. FOLLOW UP: 1 Year Follow-up Recommend return to annual screening mammography.
== END 2024-10-23 14:48 | disposition home or self-care (01) ==
LOC: RAD 14:48
PROVIDERS: PCP Family Medicine; Visit Provider Obstetrics & Gynecology
DX: Z12.31 Encounter for screening mammogram for malignant neoplasm of breast (principal); R92.323 Mammographic fibroglandular density, bilateral breasts
CPT/HCPCS: 77063; 77067

== ENCOUNTER → 2025-01-01 09:53 | Outpatient (BNVA) | payer MEDICAID, SELFPAY | PROVIDERS: PCP Family Medicine; Visit Provider Internal Medicine | DX: E03.9 Hypothyroidism, unspecified (principal) | CPT/HCPCS: 36415; 84439; 84443; 84480 ==

== ENCOUNTER 2025-02-14 07:57 | Outpatient (CLI) | payer MEDICAID, SELFPAY ==
--- NOTE | 2025-02-14 08:00 | NM_ITS ---
WS: [email or web address] NUCLEAR MEDICINE GASTRIC STUDY CLINICAL INFORMATION: chronic abdominal pain TECHNIQUE: Following oral ingestion of cooked egg mixed with 1.1 mCi technetium 99m sulfur colloid, anterior images of the stomach were obtained over the course of 90 minutes. Activity curve was performed over the course of 90 minutes with linear regression analysis. FINDINGS: Oral ingestion of cooked egg mixture T1 half emptying = 50.64 Minutes 61% emptying at 60 minutes NM/[place] gastric [place]ying st [id number] IMPRESSION: 1. Normal gastric emptying with normal linear fit T1 half emptying time *Normal median T1 half 90 minutes for solid egg meal (45-110 minutes). Delayed gastric retention is defined as 90% retained at 1 hour, 60% at 2 hour s, 30% at 3 hours, and 10% at 4 hours (normal percent gastric retention is 37-9 0% at 1 hour, 30-60% at 2 hours, and 0-10% at 4 hours).
== END 2025-02-14 07:58 | disposition home or self-care (01) ==
PROVIDERS: PCP Family Medicine; Visit Provider Internal Medicine
DX: R10.9 Unspecified abdominal pain (principal); G89.29 Other chronic pain; K30 Functional dyspepsia
CPT/HCPCS: 78264; A9541

== ENCOUNTER → 2025-02-27 14:57 | Outpatient (BNVA) | payer MEDICAID, SELFPAY | PROVIDERS: PCP Family Medicine; Visit Provider Orthopaedic Surgery | DX: M54.50 Low back pain, unspecified (principal); M54.2 Cervicalgia; G89.29 Other chronic pain | CPT/HCPCS: 72050; 72110 ==

== ENCOUNTER 2025-03-04 14:17 | Outpatient (CLI) | payer MEDICAID, SELFPAY ==
--- NOTE | 2025-03-04 14:30 | MR_ITS ---
WS: [id number] MRI LUMBAR SPINE NONCONTRAST HISTORY: Chronic Back pain, low back and leg pain. COMPARISON: None available. TECHNIQUE: Sagittal and axial multisequence imaging is submitted. Normal lumbar alignment with no compression fractures or marrow edema. Disc spaces and vertebral body heights are well-preserved. Conus terminates normally at L1-2 disc level. L1-L2: Normal. L2-L3: Mild disc bulging with ligamentum flavum and facet arthritis. Annular tear RIGHT paracentral. No stenosis. L3-L4: Mild annular disc bulging with very minimal encroachment upon the subarticular recesses. Moderate ligamentum flavum and facet arthritis. No stenosis. L4-L5: Diffuse annular disc bulge with a small central disc protrusion. No significant stenosis. Mild ligamentum flavum and facet arthritis. Fluid in the facet joints. Mild narrowing of the LEFT foramen. Moderate facet arthritis. L5-S1: Mild disc bulging with no stenosis. Moderate facet arthritis. No disc protrusions. MR/MR lumbar spine wo con* [id number] IMPRESSION: 1. No acute fractures. 2. No high-grade central or foraminal stenosis. 3. Ligamentum flavum and facet joint arthropathy most significant from L3-4 to L5-S1.
== END 2025-03-04 14:18 | disposition home or self-care (01) ==
PROVIDERS: PCP Family Medicine; Visit Provider Orthopaedic Surgery
DX: M47.26 Other spondylosis with radiculopathy, lumbar region (principal); M24.28 Disorder of ligament, vertebrae; M47.897 Other spondylosis, lumbosacral region; M51.369 Other intervertebral disc degeneration, lumbar region without mention of lumbar back pain or lower extremity pain; M51.26 Other intervertebral disc displacement, lumbar region; M51.379 Other intervertebral disc degeneration, lumbosacral region without mention of lumbar back pain or lower extremity pain
CPT/HCPCS: 72148

== ENCOUNTER → 2025-03-27 13:15 | Outpatient (BNVA) | payer MEDICAID, SELFPAY | PROVIDERS: PCP Family Medicine; Visit Provider Orthopaedic Surgery | DX: M54.50 Low back pain, unspecified (principal); M54.2 Cervicalgia; G89.29 Other chronic pain; M47.26 Other spondylosis with radiculopathy, lumbar region | CPT/HCPCS: 72050; 72110 ==

== ENCOUNTER 2025-04-02 09:14 | Outpatient (CLI) | payer MEDICAID, SELFPAY ==
--- NOTE | 2025-04-02 09:30 | MR_ITS ---
WS: [email or web address] MRI CERVICAL SPINE NONCONTRAST HISTORY: cervical pain COMPARISON: None available. Technique: Multiplanar, multisequence noncontrast imaging of the cervical spine. Slight straightening of the normal cervical lordosis. No marrow edema or fracture. Signal within the cervical cord is normal. Visualized posterior fossa is unremarkable. Craniocervical junction, C1 and C2 relationship, odontoid process and soft tissues are normal. C2-C3: Normal. C3-C4: Very mild annular disc bulging and small osteophytes. No stenosis. C4-C5: Mild annular disc bulging and osteophytic ridging. No stenosis. C5-C6: Mild annular disc bulge with a tiny central disc protrusion and foraminal osteophytes. Mild central and bilateral foraminal stenosis. C6-C7: Mild annular disc bulging. No stenosis. C7-T1: Normal. Paraspinal soft tissue are normal. MR/MR cervical spin wo con* [id number] IMPRESSION: 1. No high-grade central or foraminal stenosis. 2. C5-6: Tiny central disc protrusion and vertebral osteophytes resulting in m ild central and bilateral foraminal stenosis. 3. No marrow edema or fractures.
== END 2025-04-02 09:15 | disposition home or self-care (01) ==
PROVIDERS: PCP Family Medicine; Visit Provider Orthopaedic Surgery
DX: M48.02 Spinal stenosis, cervical region (principal); M25.78 Osteophyte, vertebrae; M50.31 Other cervical disc degeneration, high cervical region; M50.321 Other cervical disc degeneration at C4-C5 level; M50.322 Other cervical disc degeneration at C5-C6 level; M50.323 Other cervical disc degeneration at C6-C7 level
CPT/HCPCS: 72141

== ENCOUNTER 2025-04-07 07:32 | Outpatient (CLI) | payer MEDICAID, SELFPAY ==
--- NOTE | 2025-04-07 07:45 | MR_ITS ---
WS: [email or web address] MRA HEAD TECHNIQUE: Axial 3-D TOF images obtained with axial images and axial, sagittal, and coronal 2-D reformatted images. CLINICAL INFORMATION: M54.2 - Cervicalgia COMPARISON: MRI 2022 FINDINGS: Dominant distal LEFT vertebral artery. Basilar artery is patent. Normal vascularity to the OCEANOGRAPHIC METEOROLOGIST territory bilaterally. Patent RIGHT posterior communicating artery. Both ICAs are patent at the skull base. Absent RIGHT A1 segment. Normal vascularity to the SHMUEL territory. Normal vascularity to the MCA territories bilaterally. MR/MR angio head wo con [id number] IMPRESSION: 1. No evidence of proximal flow-limiting stenosis. 2. Absent RIGHT A1 segment.
== END 2025-04-07 07:33 | disposition home or self-care (01) ==
PROVIDERS: PCP Family Medicine; Visit Provider Psychiatry & Neurology Neurology
DX: M54.2 Cervicalgia (principal); G89.29 Other chronic pain; G43.109 Migraine with aura, not intractable, without status migrainosus; R93.0 Abnormal findings on diagnostic imaging of skull and head, not elsewhere classified
CPT/HCPCS: 70544

== ENCOUNTER 2025-06-25 15:32 | Outpatient (CLI) | payer MEDICAID, SELFPAY ==
[2025-06-25 17:01] LABS: Free T4 Free Thyroxine 1.23 ng/dL (0.82-1.77); Thyroid Stimulating Hormone 2.99 uIU/mL (0.27-4.20)
== END 2025-06-25 15:33 | disposition home or self-care (01) ==
LOC: LAB 15:35
PROVIDERS: Psychiatry & Neurology Neurology; PCP Family Medicine; Visit Provider Internal Medicine
DX: E55.9 Vitamin D deficiency, unspecified (principal); K30 Functional dyspepsia; K21.9 Gastro-esophageal reflux disease without esophagitis; E16.2 Hypoglycemia, unspecified; E06.3 Autoimmune thyroiditis
CPT/HCPCS: 36415; 82306; 84439; 84443

== ENCOUNTER → 2025-07-14 11:44 | Outpatient (BNVA) | payer MEDICAID, SELFPAY | PROVIDERS: PCP Family Medicine; Visit Provider Family Medicine | DX: G43.109 Migraine with aura, not intractable, without status migrainosus (principal); M47.26 Other spondylosis with radiculopathy, lumbar region; H81.10 Benign paroxysmal vertigo, unspecified ear | CPT/HCPCS: 80053; 85025 ==

== ENCOUNTER 2025-09-05 10:28 | Outpatient (CLI) | payer MEDICAID, SELFPAY ==
--- NOTE | 2025-09-05 10:32 | US_ITS ---
WS: [email or web address] US pelvic complete* [id number] HISTORY: ABNORMAL UTERINE VAGINAL BLEEDING COMPARISON: None available. This pelvic examination is limited as patient refused transabdominal imaging and the urinary bladder is only partially distended. Body habitus compromises transabdominal imaging also. Uterus: 7.6 cm x 5.6 cm x 3.8 cm. Poorly visualized anteverted uterus. Urinary bladder does not distend over the uterus. Fibroid would be difficult to exclude. Endometrium: Endometrium cannot be visualized or adequately assessed on this examination. Transvaginal ultrasound needs to be performed. Right ovary: 2.4 cm x 1.3 cm x 1.8 cm. Normal size and vascularity, no cystic or solid masses. Left ovary: Not visualized.. No free fluid in the cul-de-sac. US/US pelvic complete* [id number] IMPRESSION: 1. Suboptimal evaluation of the uterus and endometrium. Transvaginal pelvic ul trasound needs to be performed for better evaluation of the endometrium and tolowa dee-ni' heriberto. 2. Endometrium is not identified and cannot be measured or evaluated. 3. Negative RIGHT ovary. LEFT ovary is not visualized. 4. Recommend transvaginal pelvic ultrasound follow-up.
== END 2025-09-05 10:29 | disposition home or self-care (01) ==
LOC: RAD 10:29
PROVIDERS: PCP Family Medicine; Visit Provider Nurse Practitioner Family
DX: N93.9 Abnormal uterine and vaginal bleeding, unspecified (principal); R93.5 Abnormal findings on diagnostic imaging of other abdominal regions, including retroperitoneum
CPT/HCPCS: 76856

== ENCOUNTER → 2025-09-20 10:55 | Outpatient (BNVA) | payer MEDICAID, SELFPAY | PROVIDERS: PCP Family Medicine; Visit Provider Family Medicine | DX: J02.9 Acute pharyngitis, unspecified (principal) | CPT/HCPCS: 87880 ==

== ENCOUNTER 2025-10-06 16:01 | Emergency (ER) | payer MEDICAID, SELFPAY ==
[2025-10-06 16:05] VITALS: BP 122/87; PULSE 73; TEMP 36.8; O2SAT 96; BMI 33.0
--- NOTE | 2025-10-06 16:26 | CTR_ITS ---
PROCEDURE INFORMATION: Exam: CT Neck With Contrast Exam date and time: 10/06/2025 5:26 PM Age: 55 years old Clinical indication: Neck pain and painful swallowing; PT arrives pov C/O sore throat and stiff neck for the past few days. PT states she has been seen by and sent here. ; Additional info: Neck pain, can't swallow TECHNIQUE: Imaging protocol: Computed tomography of the neck with contrast. Radiation optimization: All CT scans at this facility use at least one of these dose optimization techniques: automated exposure control; mA and/or kV adjustment per patient size (includes targeted exams where dose is matched to clinical indication); or iterative reconstruction. Contrast material: [id number]; Contrast volume: 100 ml; Contrast route: INTRAVENOUS (IV); COMPARISON: MR cervical spin wo con* [id number] 04/02/2025 9:47 AM RADIATION DOSE METRICS: Total DLP (mGy-cm): 278.1 FINDINGS: Brain: Visualized intracranial structures are unremarkable. Paranasal sinuses: Opacified right maxillary sinus with sinus atelectasis suggestive of chronic sinusitis. Remaining paranasal sinuses are clear. Mastoid air cells: Tympanomastoid cavities are clear. Salivary glands: Fatty infiltration of the parotid glands. Submandibular glands are unremarkable. Oral cavity: The oral cavity is unremarkable. Pharynx: Symmetric mild enlargement, edema, and enhancement of the bilateral palatine tonsils. Question mild phlegmonous changes in the superior right palatine tonsil (series 6, image 70). The parapharyngeal fat is preserved. No defined tonsillar or peritonsillar abscess. The nasopharynx is unremarkable. The hypopharynx is unremarkable. Larynx: Laryngeal structures are unremarkable. Thyroid: Mildly heterogeneous. Trachea: Visualized trachea is unremarkable. Lungs: Visualized lungs are unremarkable. Lymph nodes: Reactive type prominence of the bilateral level II lymph nodes Vasculature: Vasculature is unremarkable. Bones/joints: Mild reversal of the cervical lordosis. No acute fracture or dislocation. Soft tissues: Soft tissues are unremarkable. CT/CT neck w con* [id number] IMPRESSION: 1. Bilateral tonsillitis. 2. No well-defined focal fluid collection or abscess.
[2025-10-06 16:40] LABS: Hematocrit 44.0 % (36-47); Hemoglobin 14.70 g/dL (11.27-16.99); Mean Corpuscular HGB Conc 33.4 g/dL (30-55); Mean Corpuscular Hemoglobin 29.4 pg (27-33); Mean Corpuscular Volume 88.0 fl (85-98); Nucleated Red Blood Cells % 0 %; Platelet Count 267 10^3/cmm (157-399); Red Blood Count 5.00 10^6/uL (3.85-5.65); White Blood Count 11.71 10^3/uL (3.29-11.43)
--- NOTE | 2025-10-06 16:41 | ED_ITS ---
HPI - URI/Sore Throat 2 General: Chief Complaint: Upper Respiratory Infection Stated Complaint: sore throat, neck pain, swelling, high bp Time Seen by Provider: 10/06/25 16:16 Source: patient Mode of arrival: ambulatory Limitations: no limitations History of Present Illness: Patient is a 55-year-old female who is sent from urgent care for evaluation of a sore throat for greater than a week. Initially had been seen urgent care swabbed for strep throat but this was negative. Notes that she had been noticing white plaques on her throat at home, and worsening neck pain and now has had some trouble swallowing and swelling in her neck. Has finished antibiotics, she got no relief from these. Denies any fever, nausea/vomiting, confusion, or any other symptoms at this time. She is not encephalopathic, her vitals are stable. She had stated that she does not know why she is here, and that she just wants to make sure she does not have an infection and wants to go home. MD elicited complaint: sore throat Onset (ago): week(s) Consistency: constant Associated symptoms: Deny abdominal pain, chills, chest pain, diarrhea, ear or mastoid pain, fever(s), headache(s), nausea or vomiting Related Data Previous Rx's ?Medication ?Instructions ?Recorded atenolol 25 mg tablet See Rx Instructions .Route 0 02/03/25 .COMPLEX #90 tabs cholecalciferol (vitamin D3) 1,250 50,000 unit PO Q7D #12 caps 04/03/25 mcg (50,000 unit) capsule rimegepant 75 mg disintegrating 75 mg PO ONCE PRN migr edith 04/03/25 tablet headache #8 tabs tramadol 50 mg tablet 50 mg PO TID PRN pain 30 day s #90 05/12/25 tabs blood sugar diagnostic (True #100 ea 06/05/25 Metrix Glucose Test Strip) blood-glucose meter (True Metrix #1 ea 06/05/25 Glucose Meter) lancets #100 ea 06/05/25 blood-glucose sensor (Dexcom G7 #3 ea 06/09/25 Sensor device) blood-glucose,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,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 #1 ea 06/09/25 (Dexcom G7 System Support Specialist) levothyroxine 125 mcg tablet See Rx Instructions .Rout e 09/29/25 .COMPLEX #30 tabs cyclobenzaprine 5 mg tablet 5 mg PO Q8H #10 tabs 10/06 prednisone 10 mg tablets in a dose 10 mg PO DIRECTE D #21 ea 10/06/25 pack Allergies Allergy/AdvReac Type Severity Reaction Status Date / Time metronidazole (From Flagyl) Allergy ALGY-Hives Verified 10/06/25 16:14 Review of Systems 2 General: Reports: 10 or more systems reviewed and unremarkable except in HPI and below Const: Denies: fever(s), chills or fatigue Eyes: Denies: change in vision ENMT: Reports: throat pain and odynophagia; Denies: ear or mastoid pain or nasal discharge Card: Denies: chest pain, palpitations, swelling of feet/ankles or lightheadedness Resp: Denies: dyspnea, productive cough or wheezing GI: Denies: abdominal pain, nausea, vomiting, diarrhea or constipation : Denies: flank pain, difficulty voiding, dysuria or urinary frequency Musc: Reports: neck pain; Denies: back pain or joint pain Skin/Breast: Denies: rash Neuro: Denies: headache(s), numbness in extremities or weakness in extremities PFSH ED 2 PFSH: Medical History Chronic back pain greater than 3 months duration BPPV (benign paroxysmal positional vertigo) Former cigarette smoker stopped 2024 Encounter for chronic pain management legacy pt on tramadol for chronic neck and back pain 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 Mayer 08/2025 and recommended D&C and endometrial bx but patient declined and refused to f/u--did have normal PAP 8.. but HPV positive at Dr. 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 Jimena DEL RIO Aug 2015 note Hx vaginal dysplasia --treated with wide local excision of vaginal lesions 2.15.11 with focally positive margins that were treated at time of initial surgery and had subsequent colposcopy and bx 8.4.11 that showed CIN1--treated w/ electrocautery; vaginal bx done 03.19.15 at 3 o'clock revealed severe dysplasia; she had CO2 laser ablation of vaginal lesions 6.1.15 Osteoarthritis of spine with radiculopathy, lumbar region MRI 03/21--reviewed with her; nothing surgical 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 with focally positive margins that were treated at time of initial surgery and had subsequent colposcopy and bx .03.07 that showed CIN1--treated w/ electrocautery; vaginal bx done 03.19.15 at 3 o'clock revealed severe dysplasia; she had CO2 laser ablation of vaginal lesions 6.1.15; 05-01-18 had laser ablation of vulvar neoplasm H/O tubal ligation H/O section X 1 Family History Brother Diabetes Heart disease Mother Diabetes Hypertension Grandmother Colon cancer Denies family history of Ovarian cancer Clotting disorder Hyperlipidemia Breast cancer Anesthesia complication Bleeding disorder Uterine cancer Thyroid disease Stroke Social History Smoking and tobacco/nicotine status: current some day tobacco/nicotine user Quit status (tobacco/nicotine): has quit using Year quit tobacco: quit 07.14.25 Former quit date comment: 1ppd X 15 yrs Alcohol intake: current Alcohol intake frequency: holidays/special occasions only Alcohol type: beer Substance/Drug Use: never Household members: significant other Marital status: Life Partner Number of children: 1 Highest education level completed: Some College, No Degree Current occupational status: previously employed 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 Physical Exam 2 Const: COMMON NORMALS: no acute distress, patient oriented x3 and no limitations GENERAL APPEARANCE: cooperative, comfortable and well developed ORIENTATION/CONSCIOUSNESS: Yes awake, Yes oriented to person, Yes oriented to place and Yes oriented to time OTHER: Nontoxic-appearing HENMT: COMMON NORMALS: normocephalic, atraumatic and hearing grossly normal bilaterally HEAD & SCALP: normocephalic and atraumatic OTHER: Tonsils are normal, no posterior oropharyngeal swelling, erythema, or exudate Eye: COMMON NORMALS: Equal, round and reactive pupils present, EOMs intact bilaterally and conjunctivae normal CONJUNCTIVA: Yes conjunctivae normal P UPIL: Yes Equal, round and reactive pupils present Neck/C-Spine: COMMON NORMALS: full ROM, supple and no JVD OTHER: Tender to palpation of bilateral paracervical muscles, negative Kernig's and negative Brudzinski Resp: COMMON NORMALS: normal respiratory effort, No retractions, No use of accessory muscles and clear to auscultation bilaterally AUSCULTATION: clear to auscultation bilaterally OTHER: no stridor Cardio: COMMON NORMALS: no JVD, regular rate, regular rhythm, No clicks present (Cardio), No murmurs present (Cardio) and No rub (Cardio) RATE: r egular rate RHYTHM: regular rhythm GI: COMMON NORMALS: Normal to inspection, nondistended, normoactive bowel sounds present, Soft to palpation and non-tender AUSCULTATION: Yes normoactive bowel sounds PALPATION: Yes Soft to palpation RECTAL EXAM: d eferred Extremity: COMMON NORMALS: normal to inspection, full ROM and capillary refill normal Neuro: COMMON NORMALS: patient oriented x3, moves all extremities, no focal motor deficits and no sensory deficits noted SENSORIUM/ORIENTATION: Yes oriented to person, Yes oriented to place and Yes oriented to time Skin: COMMON NORMALS: no rashes or lesions noted GENERAL SKIN EXAM: no rashes or lesions noted Course 2 Vital Signs: Vital signs: Vital Signs Temperature 98.3 F 10/06/25 16:05 Pulse Rate 73 10/06/25 16:05 Blood Pressure 122/87 10/06/25 16:05 Pulse Oximetry 96 10/06/25 16:05 Oxygen Delivery Me thod Room Air 10/06/25 16:05 MDM - URI/Sore Throat Medical Decision Making Patient was referred from urgent care due to reports of swelling in her neck, pain, and not improving in her symptoms following antibiotic therapy. Airway was patent on arrival she did not appear encephalopathic or toxic, there was no meningismus on exam or any other abnormalities. Posterior oropharyngeal exam was unremarkable. Labs drawn and negative including negative CBC, CMP, ESR, and CRP. CT of the neck shows tonsillitis, nonspecific but there is no evidence of abscess or other abnormality to explain her pain. She does note quite a bit of relief following steroids, and reviewing her medical history she has many chronic pain disorders and I do not suspect this is an emergent cause of her neck pain. She will be allowed discharge home is to continue following up with her regular provider. Lab Data 10/06/25 16:35 10/06/25 16:[address] 10/06/25 16:26 IMPRESSION: 1. Bilateral tonsillitis. 2. No well-defined focal fluid collection or abscess. Laboratory Results WBC 11.71 10^3/uL (3.29-11.43) H 10/06/25 16:35 RBC 5.00 10^6/uL (3.85-5.65) 10/06/25 16:35 Hgb 14.70 g/dL (11.27-16.99) 10/06/25 16:35 Hct 44.0 % (36-47) 10/06/25 16:35 MCV 88.0 fl (85-98) 10/06/25 16:35 MCH 29.4 pg (27-33) 10/06/25 16:35 MCHC 33.4 g/dL (30-55) 10/06/25 16:35 RDW 13.0 % (12.1-15.1) 10/06/25 16:35 Plt Count 267 10^3/cmm (157-399) 10/06/25 16:35 MPV 11.7 fL (7.4-10.4) H 10/06/25 16:35 Neut % (Auto) 69.9 % 10/06/25 16:35 Lymph % (Auto) 23.8 % 10/06/25 16:35 Kidder % (Auto) 4.3 % 10/06/25 16:35 Eos % (Auto) 1.3 % 10/06/25 16:35 Baso % (Auto) 0.4 % 10/06/25 16:35 Neut # (Auto) 8.19 10^3/uL (1.8-7.7) H 10/06/25 16:35 Lymph # (Auto) 2.8 10^3/uL (0.8-4.8) 10/06/25 16:35 Kidder # (Auto) 0.5 10^3/uL (0.2-0.9) 10/06/25 16:35 Eos # (Auto) 0.2 10^3/uL (0.0-0.8) 10/06/25 16:35 Baso # (Auto) 0.1 10^3/uL (0.0-0.1) 10/06/25 16:35 Nucleated RBC % (auto) 0 % 10/06/25 16:35 Nucleated RBCs # 0.0 /100WBC 10/06/25 16:35 ESR 9 mm/hr (0-15) 10/06/25 16:35 Sodium 138 mmol/L (136-145) 10/06/25 16:35 Potassium 4.3 mmol/L (3.5-5.1) 10/06/25 16:35 Chloride 101 mmol/L (98-107) 10/06/25 16:35 Carbon Dioxide 27 mmol/L (22-29) 10/06/25 16:35 Anion Gap 14.3 (5-19) 10/06/25 16:35 BUN 12 mg/dL (6-20) 10/06/25 16:35 Creatinine 0.8 mg/dL (0.5-0.9) 10/06/25 16:35 GFR Calculation 74.7 mL/min (90-130) L 10/06/25 16:35 Glucose 93 mg/dL (65-115) 10/06/25 16:35 Calculated Osmolality 285 mOsm/kg (285-295) 10/06/25 16:35 Calcium 9.2 mg/dL (8.5-10.5) 10/06/25 16:35 Total Bilirubin 0.4 mg/dL (0.15-1.2) 10/06/25 16:35 AST 16 U/L (0-32) 10/06/25 16:35 ALT 15 U/L (0-33) 10/06/25 16:35 Alkaline Phosphatase 65 U/L (35-105) 10/06/25 16:35 C-Reactive Protein 3.3 mg/L (0.0-4.9) 10/06/25 16:35 Total Protein 7.7 g/dL (6.6-8.7) 10/06/25 16:35 Albumin 4.3 g/dL (3.5-5.2) 10/06/25 16:35 Globulin 3.4 g/dL (1.3-4.6) 10/06/25 16:35 All radiology interpretation(s) finalized by discharge Discharge Plan Discharge Patient Disposition: Home Clinical Impression: Tonsillitis Condition: Stable Prescriptions: New prednisone 10 mg tablets,dose pack 10 mg PO DIRECTED Qty: 21 0RF Rx Instructions: see taper instructions 6 tablets on day 1, 5 tablets on day 2, 4 tablets on day 3, 3 tablets on day 4, 2 tablets on day 5, and 1 tablet a day 6. P.o. cyclobenzaprine 5 mg tablet 5 mg PO Q8H Qty: 10 0RF No Action cholecalciferol (vitamin D3) 1,250 mcg (50,000 unit) capsule 50,000 unit PO Q7D Qty: 12 5RF rimegepant 75 mg tablet,disintegrating 75 mg PO ONCE PRN (Reason: migraine headache) Qty: 8 0RF Rx Instructions: Do not exceed 75mg in a 24 hour period. atenolol 25 mg tablet See Rx Instructions .ROUTE .COMPLEX Qty: 90 3RF Dose Instruction: Take 1 tablet by mouth once daily Rx Instructions: Take 1 tablet by mouth once daily tramadol 50 mg tablet 50 mg PO TID PRN (Reason: pain) 30 Days Qty: 90 5RF (DME) blood-glucose meter [True Metrix Glucose Meter] Misc See Rx Instructions .Route Qty: 1 0RF Rx Instructions: As directed (DME) True Metrix Glucose Test Strip Strip See Rx Instructions .Route Qty: 100 3RF Rx Instructions: As directed (DME) lancets Misc See Rx Instructions .Route Qty: 100 3RF Rx Instructions: As directed (DME) Dexcom G7 Sensor Device See Rx Instructions .Route Qty: 3 3RF Rx Instructions: As directed (DME) Dexcom G7 System Support Specialist Misc See Rx Instructions .Route Qty: 1 0RF Rx Instructions: As directed levothyroxine 125 mcg tablet See Rx Instructions .ROUTE .COMPLEX Qty: 30 3RF Dose Instruction: Take 1 tablet by mouth once daily Rx Instructions: Take 1 tablet by mouth once daily Discharge Orders: Discharge ED (Routine); Ordered 10/06/25 Ordered By: Lobito Bey Referrals: Symone De La Fuente MD [Primary Care Provider, Family Practice] Patient Instructions: Patient Portal & Ange Instructions Activity Restrictions/Additional Instructions: Muscle relaxers. Prednisone taper as prescribed. Follow-up with primary care, respiratory panel pending at this time. Return with any new or worsening. Keep taking your prescribed tramadol. Print Language: Bangladeshi Coding Level of Care Code ED Freezer Person for Ahmet Rowe
[2025-10-06 17:06] LABS: Alanine Aminotransferase 15 U/L (0-33); Albumin Level 4.3 g/dL (3.5-5.2); Alkaline Phosphatase 65 U/L (35-105); Anion Gap 14.3 (5-19); Aspartate Amino Transferase 16 U/L (0-32); Blood Urea Nitrogen 12 mg/dL (6-20); Calcium 9.2 mg/dL (8.5-10.5); Carbon Dioxide 27 mmol/L (22-29); Chloride 101 mmol/L (98-107); Creatinine Clr Calc Pharmacy 95.4909; Globulin 3.4 g/dL (1.3-4.6); Glucose 93 mg/dL (65-115); Osmolality Calculated 285 mOsm/kg (285-295); Potassium 4.3 mmol/L (3.5-5.1); Sodium 138 mmol/L (136-145); Total Protein 7.7 g/dL (6.6-8.7)
[2025-10-06] MEDS: iohexol 350 mg/mL 500 mL Btl (per mL) IV (17:31)
[2025-10-06 18:46] VITALS: BP 140/83; PULSE 86; RESP 16; O2SAT 92
[2025-10-06 22:43] LABS: Coronavirus 229E,HKU1,NL63,OC4 Not Detected (NOT DETECT); Parainfluenza Virus Type 1 Not Detected (NOT DETECT); Parainfluenza Virus Type 2 Not Detected (NOT DETECT); Parainfluenza Virus Type 3 Not Detected (NOT DETECT); Parainfluenza Virus Type 4 Not Detected (NOT DETECT); SARS-COV-2 Not Detected (NOT DETECT)
== END 2025-10-06 18:49 | disposition home or self-care (01) ==
PROVIDERS: Emergency Provider Physician Assistant; PCP Family Medicine
DX: J03.90 Acute tonsillitis, unspecified (principal); Z87.891 Personal history of nicotine dependence
CPT/HCPCS: 70491; 80053; 85025; 85651; 86140; 87071; 87486; 87581; 87633; 87880; 96374; 99285; J1100

== ENCOUNTER 2025-10-09 09:21 | Outpatient (CLI) | payer MEDICAID, SELFPAY | END 2025-10-09 09:22 | disposition home or self-care (01) | LOC: LAB 09:22 | PROVIDERS: PCP Family Medicine; Visit Provider Family Medicine | DX: J03.90 Acute tonsillitis, unspecified (principal); Z72.51 High risk heterosexual behavior | CPT/HCPCS: 86308; 86664; 86665; 87070; 87806 ==

== ENCOUNTER → 2025-10-20 10:34 | Outpatient (BNVA) | payer MEDICAID, SELFPAY | PROVIDERS: PCP Family Medicine; Visit Provider Family Medicine | DX: K11.20 Sialoadenitis, unspecified (principal) | CPT/HCPCS: 86160; 86162; 86200; 86235; 86255; 86376 ==

== ENCOUNTER 2025-11-12 12:51 | Outpatient (CLI) | payer MEDICAID, SELFPAY ==
--- NOTE | 2025-11-12 12:56 | XR_ITS ---
WS: [id number] Left ankle, 3 views, 11/12/2025 Clinical Data: Left ankle injury Comparison: None. Findings: No fractures or dislocations are seen. The ankle mortise is normal. The talus and calcaneus are unremarkable. No soft tissue swelling over the medial or lateral malleolus is seen. There is a plantar spur. XR/XR ankle LT min 3V* [id number] Impression: Negative left ankle.
== END 2025-11-12 12:52 | disposition home or self-care (01) ==
LOC: RAD 12:52
PROVIDERS: PCP Family Medicine; Visit Provider Registered Nurse Neonatal Intensive Care
DX: S99.912A Unspecified injury of left ankle, initial encounter (principal); X58.XXXA Exposure to other specified factors, initial encounter
CPT/HCPCS: 73610